=== PATIENT | female | born 1990 | race Caucasian/White ===

== ENCOUNTER 2018-03-19 11:08 | Emergency (ER) | payer OTHER, SELFPAY ==
[2018-03-19 11:18] VITALS: BP 115/72; PULSE 105; RESP 18; TEMP 36.9; O2SAT 99
--- NOTE | 2018-03-19 13:06 | ED.BACK ---
HPI - Back Pain/Injury General Chief Complaint: Back Pain/Injury Stated Complaint: INJURED LOWER BACK Time Seen by Provider: 03/19/18 13:06 Related Data Allergies Allergy/AdvReac Type Severity Reaction Status Date / Time No Known Drug Allergies Allergy Verified 03/19/18 11:18 PFSH Social History Smoking Status: Never smoker Course Last Vital Signs Temp 98.4 F 03/19/18 11:18 Pulse 105 H 03/19/18 11:18 Resp 18 03/19/18 11:18 BP 115/72 03/19/18 11:18 Pulse Ox 99 03/19/18 11:18
--- NOTE | 2018-03-19 13:37 | PC.NURSE ---
pt states, im out of time, i have appointment in [place], pt signed voluntary denial of care.
== END 2018-03-19 13:39 | disposition left against medical advice (07) ==
DX: M54.9 Dorsalgia, unspecified (principal)
CPT/HCPCS: 99282